=== PATIENT | male | born 1990 | race Caucasian/White ===

== ENCOUNTER 2016-06-22 22:55 | Emergency (ER) | payer SELFPAY ==
[~2016-06-22 22:55] MED LIST: AMOXIL500 MG PO; BACTRIM DS TABL1 TA1 PO; FLEXERIL10 MG PO; LORTAB 5/500 TA1 TA1; LORTAB 5/500 TA1 TA1 PO; LORTAB ELIXIR480 ML PO; NO MEDICATIONS; VOLTAREN75 MG PO; ZOFRANODT PO
[2016-06-22] MEDS ORDERED: NO MEDICATIONS (23:12)
== END 2016-06-22 22:58 | disposition left against medical advice (07) ==
LOC: SED 22:55
DX: Z53.21 Procedure and treatment not carried out due to patient leaving prior to being seen by health care provider (principal)